=== PATIENT | female | born 1945 | race Two or more races ===

== ENCOUNTER → 2024-03-22 | Outpatient (CLI) | payer MEDICARE, SELFPAY ==
--- NOTE | 2024-03-22 10:00 | XR_ITS ---
Examination: CTA abdomen, with intravenous contrast. CTA pelvis, with intravenous contrast. 2-D sagittal and coronal reconstructions. 3-D reconstructions. 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 100 cc Isovue-370 is administered intravenously. Sagittal and coronal 2-D reconstructions are obtained. 3-D reconstructions, angiographic images are obtained. 3-D postprocessing, including vascular maximum intensity projections. Low dose protocols were performed. One or more of the following dose reduction techniques were used; automated exposure control, adjustment of the mA and/or KV according to patient size, use of iterative reconstruction technique. Findings: 6 mm enhancing lesion upper right lobe liver, image 42 Gallbladder not visualized Spleen not enlarged No pancreatic mass Stable 23 mm left adrenal adenoma Stable 10 mm splenic artery aneurysm No hydronephrosis No bowel obstruction Extensive colonic diverticulosis No pericecal inflammatory change No diverticulitis Atrophic anteverted uterus Prominent osteopenia with advanced degenerative disc disease L4-L5 IMPRESSION: 6 mm enhancing upper right lobe liver lesion, recommend MRI abdomen liver follow-up pre and postcontrast Stable 23 mm left adrenal adenoma Stable 10 mm splenic artery aneurysm
== END | disposition home or self-care (01) ==
LOC: CCTX 10:01
PROVIDERS: PCP Family Medicine; Referring Provider Surgery Vascular Surgery; Visit Provider Surgery Vascular Surgery
DX: K76.9 Liver disease, unspecified (principal); D35.02 Benign neoplasm of left adrenal gland; I72.8 Aneurysm of other specified arteries
CPT/HCPCS: 74174; A4649; Q9967